=== PATIENT | male | born 1955 | race Caucasian/White ===

== ENCOUNTER → 2016-03-17 | Outpatient (CLI) | payer BC ==
--- NOTE | 2016-03-17 10:35 | RAD ---
Abdominal aortic ultrasound, 03/17/2016: History: Screening exam Duplex evaluation of the abdominal aorta was performed including grayscale, color flow and spectral Doppler analysis. The abdominal aorta is not dilated. No significant atherosclerotic plaquing is identified. Limited views of the common iliac arteries show no abnormality. IMPRESSION: No evidence of abdominal aortic aneurysm.
== END | disposition home or self-care (01) ==
LOC: US 08:45
PROVIDERS: ATTEND Family Medicine
DX: Z13.6 Encounter for screening for cardiovascular disorders (principal)
CPT/HCPCS: 76770

== ENCOUNTER → 2018-03-25 | Outpatient (CLI) | payer OTHER ==
--- NOTE | 2018-03-25 10:19 | RAD ---
CT of the chest without contrast, 03/25/2018: HISTORY: Infiltrates Noncontrast scans were obtained as requested. Comparison is made to a study from 11/18/2011. There is a tiny perifissural nodule in the lateral aspect of left lower chest as seen on image 39 of series 66 which is unchanged. A tiny peripheral opacity in the posterior aspect of the right lower lobe seen on image 24 of series #2 is also present on the previous study and is unchanged. The stability of these densities indicate a benign etiology such as small scars. No pulmonary consolidation or suspicious mass is identified. There is no evidence of pleural fluid. There is only minimal calcific plaquing of the aorta without evidence of aneurysm. Minimal coronary artery calcification is present. There are prominent epicardial fat pads. Small calcified mediastinal and left hilar lymph nodes are noted. No mediastinal adenopathy is evident. The incompletely visualized liver demonstrates generalized decreased density compatible with hepatic steatosis. There is mild bilateral renal cortical scarring. There are moderate scattered spurs in the spine. IMPRESSION: 1. Minimal calcific plaquing the aorta and coronary arteries. 2. Old healed granulomatous disease in the chest. 3. Minimal parenchymal scarring. 4. Hepatic steatosis. PQRS Compliance Statement: One or more of the following individualized dose reduction techniques were utilized for this examination: 1. Automated exposure control 2. Adjustment of the mA and/or kV according to patient size 3. Use of iterative reconstruction technique Electronically signed by: Berny Perez MD (03/25/2018 10:14 AM) [facility]
== END | disposition home or self-care (01) ==
LOC: CT 09:37
PROVIDERS: ATTEND Family Medicine
DX: R91.8 Other nonspecific abnormal finding of lung field (principal); I25.10 Atherosclerotic heart disease of native coronary artery without angina pectoris; K76.0 Fatty (change of) liver, not elsewhere classified
CPT/HCPCS: 71250

== ENCOUNTER → 2018-04-20 | Outpatient (CLI) | payer OTHER ==
[2018-04-14 11:00] VITALS: BP 106/60
[~2018-04-20] MED LIST: ATOR40TA59 PO; FENO160T PO; GLIM4TAB2 PO; HYDR-2765 PO; METF10007 PO; PHEN-444 PO; SITA100T PO; TAMS0.4C2 PO
--- NOTE | 2018-04-20 15:51 | RAD ---
KUB, 04/20/2018: HISTORY: Follow-up urinary tract calculus Comparison is made to a study from 04/14/2018. The abdominal gas pattern is unremarkable. The left ureteral stent remains in place in satisfactory position. A vague opacity projected over the proximal shaft of the stent at the level of the tip of the left L3 transverse process may represent a residual ureteral calculus, however, that cannot be stated with certainty. CT scanning may be useful for further evaluation if clinically indicated. Electronically signed by: Berny Perez MD (04/20/2018 3:47 PM) [facility]
== END | disposition home or self-care (01) ==
LOC: RAD 12:29
PROVIDERS: ATTEND Urology
DX: N20.0 Calculus of kidney (principal)
CPT/HCPCS: 74018

== ENCOUNTER → 2018-05-05 | Outpatient (CLI) | payer OTHER ==
[2018-04-14 11:00] VITALS: BP 106/60
--- NOTE | 2018-05-05 11:17 | RAD ---
EXAM: Supine AP view of the abdomen DATE: 05/05/2018 10:26 AM INDICATION: LEFT SIDED KIDNEY STONE, STENT PLACED 3 WKS AGO COMPARISON: 04/20/18, 04/14/2018, CT 04/13/2018 FINDINGS: A left ureteral stent is in stable position. A subtle radiopaque density at the left aspect of the L3 transverse process may represent the known ureteral calculus. Moderate colonic stool content is seen. No small or large bowel dilatation. Evaluation for free intraperitoneal gas is limited on this supine exam. IMPRESSION: 1. Radiopaque density along the left ureteral stent at the level of the L3 transverse process may represent the known ureteral calculus. However CT could delineate further. Electronically signed by: Jerry Ellington MD (05/05/2018 11:14 AM) [id number]
== END | disposition home or self-care (01) ==
LOC: RAD 10:03
PROVIDERS: ATTEND Urology
DX: N20.0 Calculus of kidney (principal)
CPT/HCPCS: 74018

== ENCOUNTER → 2018-10-11 | Outpatient (CLI) | payer OTHER ==
[2018-04-14 11:00] VITALS: BP 106/60
--- NOTE | 2018-10-12 10:36 | KCIC ---
Examination: MRI of the right wrist without contrast HISTORY: History of right wrist pain chronic Comparison: None available Technique: Multiplanar, multisequence MR imaging of the right wrist were performed without contrast FINDINGS: There is moderate joint space loss identified in the intercarpal joints and the radiocarpal joint with small subchondral cystic changes identified in the distal aspect of the radius, ulna and in the carpal bones including the scaphoid, lunate, triquetrum, capitate and hamate bone. There is dorsal tilting of the lunate in relation to the capitate likely changes of dorsal intercalated segmental instability. There is mild increased signal identified in the scapholunate ligament could be secondary to tear however evaluation is limited due to motion. There is mild degenerative change of triangular fibrocartilage complex. There is a focus of low T1 signal identified within the proximal scaphoid bone. The visualized flexor tendons grossly appears unremarkable. Small amount of fluid identified in the second extensor compartment tendon likely mild tenosynovitis. IMPRESSION: 1. 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 There is scapholunate ligament tear in the dorsal aspect however evaluation is limited due to scarring.. Examination is limited due to motion artifact. 2. Multiple subchondral cystic changes identified in the radiocarpal and midcarpal joint probably secondary to degeneration. Given the cystic predominance consider crystalline arthropathy changes. Focus of low T1 signal identified in the proximal scaphoid bone probably secondary degeneration or less likely avascular necrosis. 3. Mild tenosynovitis second extensor compartment. 4. Questionable prominent appearing synovium in the carpal joints. Correlate for inflammatory joint disease. Electronically signed by: Esdras Villanueva MD (10/12/2018 10:33 AM) [id number]
== END | disposition home or self-care (01) ==
LOC: KCIC MRI 15:06
PROVIDERS: ATTEND Internal Medicine Rheumatology
DX: S63.591A Other specified sprain of right wrist, initial encounter (principal); M65.88 Other synovitis and tenosynovitis, other site; G89.29 Other chronic pain; X58.XXXA Exposure to other specified factors, initial encounter; Y93.89 Activity, other specified; Y92.89 Other specified places as the place of occurrence of the external cause; Y99.8 Other external cause status
CPT/HCPCS: 73221